=== PATIENT | male | born 1975 | race African-American/Black ===

== ENCOUNTER 2018-08-31 03:25 | Emergency (ER) | payer SELFPAY ==
[~2018-08-31] VITALS: Ht 175.3 cm; Wt 86.0 kg
[2018-08-31] MEDS ORDERED: SODIUM CHLORIDE 0.9% 1,000 ML IV ONE (03:49)
[2018-08-31] MEDS ORDERED: ONDANSETRON HCL 4MG/2ML INJ IV STA (03:49)
[2018-08-31] MEDS ORDERED: MORPHINE SULFATE 4 MG/ML CPJ (NOT FOR IM USE) IV STA (03:49)
[2018-08-31 04:12] LABS: BASOPHILS % 0.9 % (0.0-2.0); EOSINOPHILS % 3.5 % (0.0-5.0); HEMATOCRIT. 42.3 % (42.0-52.0); HEMOGLOBIN. 14.4 g/dL (14.0-18.0); MEAN CORPUSCULAR HEMOGLOBIN 32.1 pg (28.0-32.0); MEAN CORPUSCULAR VOLUME 94.7 fL (80.0-94.0); MEAN PLATELET VOLUME 7.5 fl (7.4-10.4); MONOCYTES % 7.3 % (2.0-8.0); NEUTROPHILS % 38.3 % (40.0-76.0); PLATELET 240 x1000/uL (130-400); RED BLOOD CELL COUNT 4.47 mill/uL (4.7-6.1); RED CELL DISTRIBUTION WIDTH 13.5 % (11.6-14.6)
[2018-08-31 04:18] LABS: CHLORIDE 109 mEq/L (98-107)
[2018-08-31] MEDS ORDERED: FENTANYL CITRATE/PF 50MCG/ML 2ML VIAL IV ONE (05:45)
[2018-08-31 09:21] VITALS: BP 128/89
== END 2018-08-31 09:25 | disposition short-term general hospital (02) ==
LOC: ER 03:25
DX: S76.112A Strain of left quadriceps muscle, fascia and tendon, initial encounter (principal); S76.111A Strain of right quadriceps muscle, fascia and tendon, initial encounter; M25.462 Effusion, left knee; M25.461 Effusion, right knee; F17.210 Nicotine dependence, cigarettes, uncomplicated; F12.10 Cannabis abuse, uncomplicated; W01.0XXA Fall on same level from slipping, tripping and stumbling without subsequent striking against object, initial encounter; Y93.89 Activity, other specified; Y92.89 Other specified places as the place of occurrence of the external cause; Y99.8 Other external cause status
CPT/HCPCS: 36415; 73560; 80048; 85025; 96374; 96375; 99285; 99406; J2270; J2405; J3010; J7030; Z7610